=== PATIENT | female | born 1995 | race African-American/Black ===

== ENCOUNTER 2023-10-25 17:53 | Emergency (ER) | payer BC ==
[~2023-10-25] VITALS: Ht 172.7 cm; Wt 105.0 kg
[2023-10-25 18:10] VITALS: O2SAT 98
[2023-10-25] MEDS ORDERED: DIPHENHYDRAMINE 50MG/ML VIAL IM STA (18:42)
[2023-10-25] MEDS ORDERED: LORAZEPAM 2MG/ML CPJ IM STA (18:42)
[2023-10-25] MEDS ORDERED: OLANZAPINE 10 MG/VIAL IM STA (18:42)
[2023-10-25] MEDS ORDERED: LORAZEPAM 4MG/ML VIAL IM NR (19:15)
[2023-10-25 20:08] LABS: BASOPHILS % 0.7 % (0.0-2.0); HEMATOCRIT. 37.6 % (36.0-48.0); HEMOGLOBIN. 12.1 g/dL (12.0-16.0); LYMPHOCYTES % 25.9 % (20.0-50.0); MEAN CORPUSCULAR HEMOGLOBIN 26.7 pg (28.0-32.0); MEAN CORPUSCULAR HGB CONC 32.1 g/dL (31.0-37.0); MEAN CORPUSCULAR VOLUME 83.2 fL (81.0-99.0); MEAN PLATELET VOLUME 8.9 fl (7.4-10.4); MONOCYTES % 6.5 % (2.0-8.0); NEUTROPHILS % 61.9 % (40.0-76.0); PLATELET 308 x1000/uL (130-400); RED BLOOD CELL COUNT 4.52 mill/uL (4.2-5.4); RED CELL DISTRIBUTION WIDTH 14.1 % (11.6-14.6); WHITE BLOOD COUNT 8.5 x1000/uL (4.5-11.0)
[2023-10-25 20:22] LABS: HCG SCREEN NEGATIVE
[2023-10-25 20:31] LABS: ACETAMINOPHEN < 2 ug/mL (10-30); ALANINE AMINOTRANSFERASE 25 IU/L (10-49); ALBUMIN 4.1 g/dL (3.2-4.8); ASPARTATE AMINOTRANSFERASE 16 IU/L (<34); BILIRUBIN TOTAL 0.4 mg/dL (0.1-1.0); CALCIUM 9.2 mg/dL (8.7-10.4); CARBON DIOXIDE 24 mEq/L (21-32); CHLORIDE 109 mEq/L (98-107); CREATININE 0.8 mg/dL (0.6-1.0); GLUCOSE 129 mg/dL (70-105); POTASSIUM 3.3 mEq/L (3.5-5.1); SODIUM 141 mEq/L (136-145); UREA NITROGEN BLOOD 7 mg/dL (9-23)
[2023-10-25 20:36] LABS: ETHANOL BLOOD < 10 mg/dL (<10)
[2023-10-25 22:19] LABS: CLARITY URINE CLEAR (CLEAR); COLOR URINE YELLOW (YELLOW); GLUCOSE URINE TRACE (NEGATIVE); KETONES URINE NEGATIVE (NEGATIVE); LEUKOCYTE ESTERASE URINE NEGATIVE (NEGATIVE); NITRITE URINE NEGATIVE (NEGATIVE); OCCULT BLOOD URINE NEGATIVE (NEGATIVE); PROTEIN URINE NEGATIVE (NEGATIVE); SPECIFIC GRAVITY URINE 1.022 (1.005-1.030)
[2023-10-25 22:22] LABS: YEAST URINE NONE SEEN
[2023-10-25 22:36] LABS: *AMPHETAMINES SCREEN URINE NEGATIVE (NEGATIVE); *BARBITURATES SCREEN URINE NEGATIVE (NEGATIVE); *BENZODIAZEPINES SCREEN URINE NEGATIVE (NEGATIVE); *COCAINE SCREEN URINE NEGATIVE (NEGATIVE); CANNABINOID URINE SCREEN NEGATIVE (NEGATIVE); ECSTASY MDMA SCREEN URINE NEGATIVE (NEGATIVE); METHADONE URINE SCREEN Neg (NEGATIVE); OPIATES URINE SCREEN NEGATIVE (NEGATIVE); PHENCYCLIDINE URINE SCREEN NEGATIVE (NEGATIVE)
[2023-10-25 22:42] LABS: BACTERIA URINE 1+; RBC URINE 0-2 /hpf (0-2); SQUAMOUS EPITHELIAL CELL URINE 1+ /lpf (RARE/1+); WBC URINE 0-2 /hpf (0-2)
[2023-10-25] MEDS ORDERED: POTASSIUM CHLORIDE 20MEQ TABLET SR PO ONE (22:45)
[2023-10-26] MEDS ORDERED: ZIPRASIDONE MESYLATE 20MG/VIAL IM ONE (01:15)
[2023-10-26 06:13] VITALS: BP 131/80; PULSE 79; RESP 12; TEMP 98
== END 2023-10-26 11:09 | disposition home or self-care (01) ==
LOC: ER 17:53
DX: R45.851 Suicidal ideations (principal); E11.9 Type 2 diabetes mellitus without complications; J45.909 Unspecified asthma, uncomplicated; Z20.822 Contact with and (suspected) exposure to COVID-19; Z86.59 Personal history of other mental and behavioral disorders
CPT/HCPCS: 80053; 80305; 81003; 80307; 80329; 80320; 84703; 85025; 36415; 96372 ×2; 99285; 87426; 82962; J3490; J1200; J2060; C9803; J3486; Z7610; G0480

== ENCOUNTER 2023-12-13 17:05 | Emergency (ER) | payer MEDICAID ==
[~2023-12-13] VITALS: Ht 175.3 cm; Wt 118.0 kg
[2023-12-13 18:13] LABS: BASOPHILS % 0.6 % (0.0-2.0); EOSINOPHILS % 4.7 % (0.0-5.0); HEMATOCRIT. 42.5 % (36.0-48.0); HEMOGLOBIN. 13.3 g/dL (12.0-16.0); LYMPHOCYTES % 21.5 % (20.0-50.0); MEAN CORPUSCULAR HEMOGLOBIN 26.3 pg (28.0-32.0); MEAN CORPUSCULAR HGB CONC 31.3 g/dL (31.0-37.0); MEAN PLATELET VOLUME 9.5 fl (7.4-10.4); MONOCYTES % 11.3 % (2.0-8.0); NEUTROPHILS % 61.9 % (40.0-76.0); PLATELET 324 x1000/uL (130-400); RED BLOOD CELL COUNT 5.06 mill/uL (4.2-5.4); WHITE BLOOD COUNT 9.5 x1000/uL (4.5-11.0)
[2023-12-13 18:22] LABS: ACETAMINOPHEN < 2 ug/mL (10-30); ALANINE AMINOTRANSFERASE 18 IU/L (10-49); ALBUMIN 4.4 g/dL (3.2-4.8); ASPARTATE AMINOTRANSFERASE 15 IU/L (<34); BILIRUBIN TOTAL 0.2 mg/dL (0.1-1.0); CALCIUM 9.3 mg/dL (8.7-10.4); CARBON DIOXIDE 24 mEq/L (21-32); CHLORIDE 107 mEq/L (98-107); CREATININE 0.7 mg/dL (0.6-1.0); GLUCOSE 109 mg/dL (70-105); POTASSIUM 3.8 mEq/L (3.5-5.1); PROTEIN TOTAL 7.9 g/dL (6.0-8.3); SODIUM 139 mEq/L (136-145); UREA NITROGEN BLOOD 8 mg/dL (9-23)
[2023-12-13 18:23] LABS: ETHANOL BLOOD < 10 mg/dL (<10); HCG SCREEN NEGATIVE
[2023-12-13 19:11] LABS: *AMPHETAMINES SCREEN URINE NEGATIVE (NEGATIVE); *BARBITURATES SCREEN URINE NEGATIVE (NEGATIVE); *BENZODIAZEPINES SCREEN URINE NEGATIVE (NEGATIVE); *COCAINE SCREEN URINE NEGATIVE (NEGATIVE); CANNABINOID URINE SCREEN NEGATIVE (NEGATIVE); ECSTASY MDMA SCREEN URINE NEGATIVE (NEGATIVE); METHADONE URINE SCREEN Neg (NEGATIVE); OPIATES URINE SCREEN NEGATIVE (NEGATIVE); PHENCYCLIDINE URINE SCREEN NEGATIVE (NEGATIVE)
[2023-12-13] MEDS ORDERED: ACETAMINOPHEN 325MG TABLET PO ONE (19:45)
[2023-12-14] MEDS: LACOSAMIDE 100 MG TABLET PO SCH ×3 (02:00→19:29)
[2023-12-14] MEDS: LEVETIRACETAM 500MG/5ML CUP PO SCH ×2 (03:07→21:00)
[2023-12-14] MEDS ORDERED: OLANZAPINE 5MG TABLET ODT PO SCH (09:30)
[2023-12-14] MEDS ORDERED: CLONAZEPAM 1MG TABLET PO NR (09:30)
[2023-12-14] MEDS ORDERED: ONDANSETRON 4MG ODT PO ONE ×2 (09:45)
[2023-12-14] MEDS ORDERED: OLANZAPINE 5MG TABLET PO SCH (14:00)
[2023-12-14] MEDS ORDERED: CLONAZEPAM 1MG TABLET PO ONE (14:00)
[2023-12-14] MEDS ORDERED: LORAZEPAM 1MG TABLET PO ONE (16:15)
[2023-12-14] MEDS: OLANZAPINE 5MG TABLET ODT PO SCH (16:15)
[2023-12-14] MEDS ORDERED: DIPHENHYDRAMINE 50MG/ML VIAL IM ONE (20:00)
[2023-12-14] MEDS ORDERED: HALOPERIDOL LACTATE 5MG/ML VIAL IM ONE (20:00)
[2023-12-15] MEDS: OLANZAPINE 5MG TABLET ODT PO SCH ×2 (09:00→17:16)
[2023-12-15] MEDS: LEVETIRACETAM 500MG/5ML CUP PO SCH ×2 (09:00→23:42)
[2023-12-15] MEDS: LACOSAMIDE 100 MG TABLET PO SCH ×2 (09:00→17:16)
[2023-12-15] MEDS ORDERED: LORAZEPAM 1MG TABLET PO ONE ×2 (14:15→20:00)
[2023-12-15] MEDS ORDERED: OLANZAPINE 10 MG/VIAL IM STA (20:08)
[2023-12-15 22:00] VITALS: O2SAT 98
[2023-12-16] MEDS: LEVETIRACETAM 500MG/5ML CUP PO SCH (09:00)
[2023-12-16] MEDS: LACOSAMIDE 100 MG TABLET PO SCH ×2 (09:35→17:07)
[2023-12-16] MEDS: OLANZAPINE 5MG TABLET ODT PO SCH ×2 (09:35→17:07)
[2023-12-16] MEDS ORDERED: LORAZEPAM 1MG TABLET PO ONE (15:45)
[2023-12-16] MEDS ORDERED: TETANUS, DIPHTHERIA, PERTUSSIS VAC/PF 0.5ML (>10YR OLD) IM ONE (21:30)
[2023-12-17] MEDS ORDERED: TETANUS, DIPHTHERIA, PERTUSSIS VAC/PF 0.5ML (>10YR OLD) IM ONE (00:45)
[2023-12-17] MEDS ORDERED: OLANZAPINE 5MG TABLET ODT PO ONE (00:45)
[2023-12-17 06:17] VITALS: BP 105/53; PULSE 78; RESP 17; TEMP 98.4
[2023-12-17] MEDS: OLANZAPINE 5MG TABLET ODT PO SCH (09:00)
== END 2023-12-17 09:36 | disposition home or self-care (01) ==
LOC: ER 17:05
DX: R45.851 Suicidal ideations (principal); J45.909 Unspecified asthma, uncomplicated; E11.9 Type 2 diabetes mellitus without complications; Z20.822 Contact with and (suspected) exposure to COVID-19
CPT/HCPCS: 80053; 80305; 81025; 80307; 80329; 80320; 82962; 84703; 85025; 36415; 93005; 99285; 87426; 80339 ×4; 96372 ×2; 90715; 90471; Z7610 ×3; Q0162; J1200; J1630; J3490; G0480

== ENCOUNTER 2024-04-16 15:45 | Emergency (ER) | payer MEDICAID ==
[~2024-04-16] VITALS: Ht 170.2 cm; Wt 100.0 kg
[2024-04-16 15:48] VITALS: O2SAT 98
[2024-04-16 18:06] LABS: BASOPHILS % 0.3 % (0.0-2.0); EOSINOPHILS % 1.6 % (0.0-5.0); HEMATOCRIT. 40.1 % (36.0-48.0); HEMOGLOBIN. 13.2 g/dL (12.0-16.0); LYMPHOCYTES % 14.3 % (20.0-50.0); MEAN CORPUSCULAR HEMOGLOBIN 27.3 pg (28.0-32.0); MEAN CORPUSCULAR VOLUME 82.8 fL (81.0-99.0); MEAN PLATELET VOLUME 9.2 fl (7.4-10.4); MONOCYTES % 6.2 % (2.0-8.0); NEUTROPHILS % 77.6 % (40.0-76.0); PLATELET 261 x1000/uL (130-400); RED BLOOD CELL COUNT 4.84 mill/uL (4.2-5.4); WHITE BLOOD COUNT 9.8 x1000/uL (4.5-11.0)
[2024-04-16 18:11] LABS: CHLORIDE 107 mEq/L (98-107); POTASSIUM 3.6 mEq/L (3.5-5.1); SODIUM 137 mEq/L (136-145)
[2024-04-16 18:12] LABS: CARBON DIOXIDE 24 mEq/L (21-32)
[2024-04-16 18:13] LABS: CALCIUM 9.4 mg/dL (8.7-10.4)
[2024-04-16 18:17] LABS: CREATININE 0.6 mg/dL (0.6-1.0); GLUCOSE 132 mg/dL (70-105)
[2024-04-16 18:18] LABS: UREA NITROGEN BLOOD < 5 mg/dL (9-23)
[2024-04-16] MEDS: ONDANSETRON 4MG ODT PO ONE (18:21)
[2024-04-17] MEDS: LORAZEPAM 1MG TABLET PO ONE (03:03)
[2024-04-17 03:10] VITALS: BP 111/72; PULSE 82; RESP 16; TEMP 98.8
== END 2024-04-17 03:24 ==
LOC: ER 15:45
DX: G40.909 Epilepsy, unspecified, not intractable, without status epilepticus (principal); J45.909 Unspecified asthma, uncomplicated; E11.9 Type 2 diabetes mellitus without complications; Z88.8 Allergy status to other drugs, medicaments and biological substances
CPT/HCPCS: 99285; 80048; 85025; 36415; Q0162